=== PATIENT | male | born 1970 | race African-American/Black ===

== ENCOUNTER 2019-02-21 09:41 | Emergency (ER) | payer OTHER ==
[~2019-02-21] VITALS: Ht 180.3 cm; Wt 95.3 kg
[~2019-02-21 09:41] MED LIST: IBUPROFEN600 MG PO; VICODIN 5-5001 EACH PO
[2019-02-21 09:48] VITALS: BP 133/94
[2019-02-21] MEDS ORDERED: NKM (09:52)
--- NOTE | 2019-02-21 10:14 | Emergency Room Report ---
History of Present Illness General Chief Complaint: Lower Back Pain or Injury Source: Patient Present Illness HPI 48-year-old male, no past medical history, no surgical history presents with upper back pain that started after lifting boxes, he felt very sore afterwards, a lot of pain, aggravated with movement alleviated with rest, no fevers chills chest pain shortness of breath, he denies any bowel bladder incontinence, no focal weakness, patient presents for evaluation for possible modification of work, and a work note. Allergies: Coded Allergies: No Known Allergies (Unverified , 04/26/13) Patient History Past Medical History: see triage record Reviewed Nursing Documentation: PMH: Agreed; PSxH: Agreed Nursing Documentation-PMH Past Medical History: No Stated History Review of Systems All Other Systems: negative except mentioned in HPI Physical Exam Vital Signs Date Time Temp Pulse Resp B/P (MAP) Pulse Ox O2 Delivery O2 Flow Rate FiO2 02/21/19 09:48 98.1 70 18 133/94 (107) 99 Room Air Sp02 EP Interpretation: reviewed, normal General Appearance: well appearing, no apparent distress, alert Head: normocephalic, atraumatic Eyes: bilateral eye PERRL, bilateral eye EOMI ENT: uvula midline, moist mucus membranes Neck: supple, thyroid normal, supple/symm/no masses Respiratory: lungs clear, no respiratory distress, no retraction, no accessory muscle use Cardiovascular #1: normal peripheral pulses, regular rate, rhythm, no edema, no gallop, no murmur Gastrointestinal: non tender, soft, no guarding, no rebound Musculoskeletal: normal inspection, other - Tender to palpation left and right upper back paraspinal, left and right shoulders, tightness felt him a 5 out of 5 strength upper extremities bilaterally, sensation grossly intact Neurologic: alert, oriented x3 Psychiatric: mood/affect normal Skin: no rash, warm/dry Medical Decision Making Diagnostic Impression: Primary Impression: Muscle strain Additional Impression: Acute upper back pain ER Course The patient presents with acute onset of back pain after lifting boxes yesterday. Clinically this patient can be ruled out for serious pathology given there is a completely normal neurological exam, no history of IV drug use, and no history of bowel or bladder incontinence, no perianal numbness/tingling, no constipation or urinary retention. Patient's pain was adequately controlled, the patient was able to ambulate and be discharged in stable condition with anticipatory guidance provided. Most likely with a muscle strain, low suspicion for back fracture, recommend light activity, patient may return to work with light activity. Last Vital Signs Date Time Temp Pulse Resp B/P (MAP) Pulse Ox O2 Delivery O2 Flow Rate FiO2 02/21/19 09:48 98.1 70 18 133/94 99 Room Air Disposition: HOME, SELF-CARE Condition: Improved Scripts Naproxen* (NAPROSYN*) 250 Mg Tablet 250 MG ORAL TID PRN for For Pain, #20 TAB 0 Refills Prov: Niko Mendiola M.D. 02/21/19 Methocarbamol* (ROBAXIN-750*) 750 Mg Tablet 750 MG PO TID, #21 TAB 0 Refills Prov: Niko Mendiola M.D. 02/21/19 Referrals: [facility] Patient Instructions: Back Pain, Adult Additional Instructions: The patient was provided with discharge instructions, notified to follow-up with a primary care doctor and or specialist in the next 24-48 hours, and to return to the ED if they have worsening of their symptoms. Please note that this report is being documented using [employer] technology. This can lead to erroneous entry secondary to incorrect interpretation by the dictating instrument. Follow-up with a primary care provider in 24 to 48 hours, Niko Mendiola M.D. Feb 21, 2019 10:14
[2019-02-21] MEDS ORDERED: NAPROXEN250 MG ORAL (10:17)
[2019-02-21] MEDS ORDERED: ROBAXIN-750750 MG PO (10:17)
[2019-02-21] MEDS: Acetaminophen 500mg (ES) tab ORAL ONE (10:21)
[2019-02-21] MEDS: Methocarbamol 750mg tab ORAL ONE (10:22)
[2019-02-21 10:26] VITALS: BP 128/80
--- NOTE | 2019-02-21 10:26 | NUR ---
ER DISCHARGE NOTE: Pt was seen due to low back pain after lifting a hevay object from work. Patient is cleared to be discharged per ERMD, pt is aox4, on room air, with stable vital signs. pt was given dc and prescription instructions, pt was able to verbalize understanding, pt id band removed without complications. pt is able to ambulate with steady gait. pt took all belongings.
== END 2019-02-21 10:26 | disposition home or self-care (01) ==
LOC: EMR 10:20
DX: S29.012A Strain of muscle and tendon of back wall of thorax, initial encounter (principal); X50.0XXA Overexertion from strenuous movement or load, initial encounter; Y92.9 Unspecified place or not applicable
CPT/HCPCS: 99282